=== PATIENT | male | born 1965 | race Caucasian/White ===

== ENCOUNTER 2017-08-26 10:41 | Emergency (ER) | payer OTHER ==
[2017-08-26 10:48] VITALS: BP 139/98; PULSE 86; TEMP 98.3; BMI 30.7
--- NOTE | 2017-08-26 11:43 | PDOC ---
History of Present Illness - General Chief Complaint: Injury Stated Complaint: FALL Time Seen by Provider: 08/26/17 11:36 History Source: Patient, EMS Exam Limitations: No Limitations - History of Present Illness Initial Comments: 08/26/17 11:43 Works for [employer], states slipped on stairs this morning twisting his left ankle and falling striking his back on edge of the stair and hyperextending his right wrist. Patient denies head injury, denies any problems with urine or any dysuria/hematuria. Is ambulatory but states is painful on his left foot. Occurred: reports: just prior to arrival, this morning Severity: reports: mild, moderate Pain Location: reports: back (midpoint back/spine), lower extremity (left ankle, ), upper extremity (right wrist) Method of Injury: Yes: direct blow, fall Associated Symptoms (Fall): denies symptoms Past History - Travel Traveled outside of the country in the last 30 days: No Close contact w/someone who was outside of country & ill: No - Past Medical History Allergies/Adverse Reactions: Allergies Allergy/AdvReac Type Severity Reaction Status Date / Time No Known Allergies Allergy Verified 08/26/17 10:44 Home Medications: Ambulatory Orders Lisinopril 5 mg PO DAILY 08/26/17 Naproxen [Naprosyn -] 500 mg PO BID #20 tablet 08/26/17 COPD: No HTN: Yes - Suicide/Smoking/Psychosocial Hx Smoking History: Never smoked Have you smoked in the past 12 months: No Information on smoking cessation initiated: No Hx Alcohol Use: No Drug/Substance Use Hx: No Substance Use Type: None Review of Systems - Review of Systems Able to Perform ROS?: Yes Is the patient limited Green[place]ic proficient: Yes Constitutional: Yes: See HPI. No: Symptoms Reported, Malaise HEENTM: Yes: See HPI. No: Symptoms Reported Musculoskeletal: Yes: Symptoms Reported, Back Pain, Joint Pain (left foot/ankle) , Other (left wrist staff) All Other Systems: Reviewed and Negative *Physical Exam - Vital Signs Last Vital Signs Temp Pulse Resp BP Pulse Ox 98.3 F 86 18 139/98 100 08/26/17 10:45 08/26/17 10:45 08/26/17 10:45 08/26/17 10:45 08/26/17 10:45 - Physical Exam General Appearance: Yes: Nourished, Appropriately Dressed, Apparent Distress, Mild Distress HEENT: positive: HERRERA, Normal ENT Inspection, TMs Normal, Pharynx Normal Neck: positive: Supple. negative: Tender Respiratory/Chest: positive: Lungs Clear Musculoskeletal: positive: Normal Inspection, Vertebral Tenderness (no crepitus or step-offs, no obvious swelling or bruising noted range of motion is intact). negative: CVA Tenderness (has voided with no evidence of dark, redness or hematuria) Extremity: positive: Normal Capillary Refill, Normal Inspection (left wrist with no swelling, tenderness to any of the hand bones, strong grasp flexion and extension with some minimal tenderness on the severe hyperflexion and hyperflexed extension are intact to fingers), Normal Range of Motion, Other ( mild point tenderness to the fifth metatarsal of left foot, no crepitus or step- offs, is ambulatory with minimal limp. Neurovascular intact to toes) Integumentary: negative: Normal Color Neurologic: positive: technical operations specialist II-XII NML intact, Fully Oriented, Alert, Normal Mood/ Affect, Normal Response, Motor Strength 5/5 Progress Note - Progress Note Progress Note: X-ray negative for fractures or dislocation . Status post fall with sprained left ankle, sprained left wrist, and Multiple contusions to back. *DC/Admit/Observation/Transfer Diagnosis at time of Disposition: Contusion, multiple sites Left ankle sprain Qualifiers: Encounter type: initial encounter Involved ligament of ankle: unspecified ligament Qualified Code(s): S93.402A - Sprain of unspecified ligament of left ankle, initial encounter Sprain of left wrist Qualifiers: Encounter type: initial encounter Qualified Code(s): S63.502A - Unspecified sprain of left wrist, initial encounter - Discharge Dispostion Disposition: HOME Condition at time of disposition: Stable Admit: No - Referrals Referrals: Rey Evangelista MD [Staff Physician] - - Patient Instructions Printed Discharge Instructions: DI for Ankle Sprain Additional Instructions: Rest, ice to area on and off for 15 minutes 4-6 times a day Avoid heavy lifting or exercise until pain and swelling is resolved or until further directed Keep area highly elevated to reduce swelling Use splints/Unruly wrap as directed Followup with orthopedist in one to 2 days if not improving, if significantly improved may wait one week for followup with orthopedist May use ibuprofen 2-200 mg tablets every 6 hours as needed for pain - Post Discharge Activity Forms/Work/School Notes: Back to Work
[2017-08-26] MEDS ORDERED: IBUPROFEN 600 MG TABLET (FP) PO ONE (11:59)
== END 2017-08-26 12:08 | disposition home or self-care (01) ==
LOC: JERFT 10:41
DX: S30.0XXA Contusion of lower back and pelvis, initial encounter (principal); S20.222A Contusion of left back wall of thorax, initial encounter; S20.221A Contusion of right back wall of thorax, initial encounter; S93.402A Sprain of unspecified ligament of left ankle, initial encounter; S63.502A Unspecified sprain of left wrist, initial encounter; W10.8XXA Fall (on) (from) other stairs and steps, initial encounter; Y93.89 Activity, other specified; Y92.521 Bus station as the place of occurrence of the external cause; Y99.0 Civilian activity done for income or pay
CPT/HCPCS: 73610-TC-LT; 99281-25